=== PATIENT | male | born 1975 | race Caucasian/White ===

== ENCOUNTER 2021-09-20 14:08 | Inpatient (IN) | payer OTHER ==
[~2021-09-20] VITALS: Ht 182.9 cm; Wt 77.3 kg
[2021-09-20] MEDS ORDERED: SODIUM CHLORIDE 0.9% 1,000 ML IV ONE (15:00)
[2021-09-20] MEDS ORDERED: LEVETIRACETAM 1000MG PREMIX 100 ML IV ONE (15:00)
[2021-09-20 17:22] LABS: HEMATOCRIT. 39.3 % (42.0-52.0); HEMOGLOBIN. 14.3 g/dL (14.0-18.0); MEAN CORPUSCULAR HEMOGLOBIN 33.7 pg (28.0-32.0); MEAN CORPUSCULAR VOLUME 92.8 fL (80.0-94.0); MEAN PLATELET VOLUME 8.6 fl (7.4-10.4); PLATELET 95 x1000/uL (130-400); RED BLOOD CELL COUNT 4.23 mill/uL (4.7-6.1); RED CELL DISTRIBUTION WIDTH 13.8 % (11.6-14.6)
[2021-09-20] MEDS ORDERED: DIAZEPAM 5 MG/ML 2ML CPJ IV ONE (17:30)
[2021-09-20 18:09] LABS: CHLORIDE 80 mEq/L (98-107)
[2021-09-20 18:18] LABS: ETHANOL BLOOD < 10 mg/dL; VALPROIC ACID <3.0 ug/mL ug/mL (50-100)
[2021-09-20 18:29] LABS: CREATINE KINASE 1817 IU/L (39-308)
[2021-09-20 18:40] LABS: CARBAMAZEPINE < 0.5 ug/mL (4-12); PHENOBARBITAL < 2.1 ug/mL (15.0-40.0)
[2021-09-20 20:02] LABS: CLARITY URINE CLEAR (CLEAR); COLOR URINE ORANGE (YELLOW); KETONES URINE 1+ (NEGATIVE); LEUKOCYTE ESTERASE URINE NEGATIVE (NEGATIVE); NITRITE URINE NEGATIVE (NEGATIVE); OCCULT BLOOD URINE 1+ (NEGATIVE); PH URINE 5.5 (4.5-8.0); PROTEIN URINE 1+ (NEGATIVE); SPECIFIC GRAVITY URINE 1.017 (1.005-1.030)
[2021-09-20 20:18] LABS: *AMPHETAMINES SCREEN URINE NEGATIVE (NEGATIVE); *BARBITURATES SCREEN URINE NEGATIVE (NEGATIVE); *BENZODIAZEPINES SCREEN URINE NEGATIVE (NEGATIVE); *COCAINE SCREEN URINE NEGATIVE (NEGATIVE); CANNABINOID URINE SCREEN NEGATIVE (NEGATIVE); METHADONE URINE SCREEN NEGATIVE (NEGATIVE); OPIATES URINE SCREEN NEGATIVE (NEGATIVE); PHENCYCLIDINE URINE SCREEN NEGATIVE (NEGATIVE)
[2021-09-20] MEDS ORDERED: ASPIRIN 325MG TABLET PO ONE (20:30)
[2021-09-20 20:54] LABS: PLATELET ESTIMATE DECREASED
[2021-09-20] MEDS ORDERED: NITROGLYCERIN 0.4MG TABLET SL SL PRN (21:00)
[2021-09-20] MEDS ORDERED: MAGNESIUM/ALUMINUM HYDROXIDE/SIMETHICONE 30ML UDC PO PRN (21:00)
[2021-09-20] MEDS ORDERED: KETOROLAC 15MG/ML VIAL IV PRN (21:00)
[2021-09-20] MEDS ORDERED: GUAIFENESIN 200MG/10ML SUGAR FREE UDC PO PRN (21:00)
[2021-09-20] MEDS ORDERED: ACETAMINOPHEN 325MG TABLET PO PRN ×2 (21:00)
[2021-09-20] MEDS ORDERED: IPRATROPIUM/ALBUTEROL 0.5-3(2.5)MG/3ML NEB NEB PRN (21:00)
[2021-09-20] MEDS ORDERED: CLONIDINE 0.1MG TABLET PO PRN (21:00)
[2021-09-20] MEDS ORDERED: DOCUSATE SODIUM 100MG CAPSULE PO PRN (21:00)
[2021-09-20] MEDS ORDERED: ONDANSETRON HCL 4MG/2ML INJ IV PRN (21:00)
[2021-09-20 21:13] LABS: CHLORIDE 86 mEq/L (98-107)
[2021-09-20] MEDS: FAMOTIDINE 20MG TABLET PO SCH (22:10)
[2021-09-20] MEDS: CHLORDIAZEPOXIDE 10MG CAPSULE PO SCH (22:10)
[2021-09-20] MEDS: SODIUM CHLORIDE 0.45% 1,000 ML IV SCH (23:21)
[2021-09-20] MEDS: DILTIAZEM HCL 60MG TABLET PO SCH (23:22)
[2021-09-20 23:49] LABS: T4 FREE 0.99 ng/dL (0.76-1.46)
[2021-09-20 23:59] LABS: CREATINE KINASE MB FRACTION 4.4 ng/mL (0.5-3.6)
[2021-09-21] VITALS (8 sets, daily range): BP systolic 105–133; BP diastolic 69–79
[2021-09-21 00:16] LABS: FOLIC ACID (FOLATE) SERUM 11.1 ng/mL (>5.38)
[2021-09-21] MEDS: DILTIAZEM HCL 60MG TABLET PO SCH ×4 (06:27→23:33)
[2021-09-21] MEDS: CHLORDIAZEPOXIDE 10MG CAPSULE PO SCH ×3 (06:27→21:54)
[2021-09-21] MEDS: SODIUM CHLORIDE 0.45% 1,000 ML IV SCH (06:27)
[2021-09-21 06:34] LABS: HEMATOCRIT. 38.6 % (42.0-52.0); HEMOGLOBIN. 13.8 g/dL (14.0-18.0); MEAN CORPUSCULAR HEMOGLOBIN 33.3 pg (28.0-32.0); MEAN CORPUSCULAR VOLUME 93.4 fL (80.0-94.0); MEAN PLATELET VOLUME 8.7 fl (7.4-10.4); PLATELET 92 x1000/uL (130-400); RED BLOOD CELL COUNT 4.13 mill/uL (4.7-6.1); RED CELL DISTRIBUTION WIDTH 13.5 % (11.6-14.6)
[2021-09-21 06:41] LABS: CHLORIDE 84 mEq/L (98-107)
[2021-09-21 06:51] LABS: PHOSPHORUS 2.5 mg/dL (2.5-4.9)
[2021-09-21 07:02] LABS: CREATINE KINASE MB FRACTION 3.5 ng/mL (0.5-3.6)
[2021-09-21] MEDS ORDERED: POTASSIUM CHLORIDE 20MEQ/PACKET PO SCH (07:15)
[2021-09-21] MEDS ORDERED: SODIUM CHLORIDE 0.9% 1,000 ML IV SCH (07:15)
[2021-09-21] MEDS: SODIUM CHLORIDE 0.9% 1,000 ML IV SCH ×2 (07:26→20:35)
[2021-09-21] MEDS: ASPIRIN 325MG EC TABLET PO SCH (09:26)
[2021-09-21] MEDS: FAMOTIDINE 20MG TABLET PO SCH ×2 (09:26→21:00)
[2021-09-21 12:28] LABS: PLATELET ESTIMATE DECREASED
[2021-09-21] MEDS: MULTIVITAMINS,THER W-MINERALS TABLET PO SCH (14:34)
[2021-09-21] MEDS: THIAMINE HCL 100MG TABLET PO SCH (14:35)
[2021-09-21] MEDS: FOLIC ACID 1MG TABLET PO SCH (14:35)
[2021-09-22] VITALS: BP 115/78
[2021-09-22 04:00] VITALS: BP 101/62
[2021-09-22] MEDS: DILTIAZEM HCL 60MG TABLET PO SCH ×3 (05:38→17:00)
[2021-09-22] MEDS: CHLORDIAZEPOXIDE 10MG CAPSULE PO SCH ×2 (05:50→14:14)
[2021-09-22 06:29] LABS: HEMATOCRIT. 34.4 % (42.0-52.0); HEMOGLOBIN. 12.2 g/dL (14.0-18.0); MEAN CORPUSCULAR HEMOGLOBIN 33.4 pg (28.0-32.0); MEAN CORPUSCULAR VOLUME 94.5 fL (80.0-94.0); MEAN PLATELET VOLUME 8.9 fl (7.4-10.4); PLATELET 87 x1000/uL (130-400); RED BLOOD CELL COUNT 3.64 mill/uL (4.7-6.1); RED CELL DISTRIBUTION WIDTH 13.4 % (11.6-14.6)
[2021-09-22 06:44] LABS: CHLORIDE 96 mEq/L (98-107)
[2021-09-22 06:56] LABS: PHOSPHORUS 3.2 mg/dL (2.5-4.9)
[2021-09-22 08:00] VITALS: BP 106/67
[2021-09-22] MEDS: FAMOTIDINE 20MG TABLET PO SCH ×2 (08:44→21:14)
[2021-09-22] MEDS: MULTIVITAMINS,THER W-MINERALS TABLET PO SCH (08:44)
[2021-09-22] MEDS: ASPIRIN 325MG EC TABLET PO SCH (08:44)
[2021-09-22] MEDS: FOLIC ACID 1MG TABLET PO SCH (08:44)
[2021-09-22] MEDS: THIAMINE HCL 100MG TABLET PO SCH (08:44)
[2021-09-22] MEDS: SODIUM CHLORIDE 0.9% 1,000 ML IV SCH ×2 (08:45→21:15)
[2021-09-22] MEDS ORDERED: POTASSIUM CHLORIDE 20MEQ/PACKET PO ONE (09:30)
[2021-09-22] MEDS ORDERED: POTASSIUM CHLORIDE 20MEQ/PACKET PO NR (10:00)
[2021-09-22 10:32] LABS: CREATINE KINASE MB FRACTION 1.3 ng/mL (0.5-3.6)
[2021-09-22 12:00] VITALS: BP 107/66
[2021-09-22 14:47] LABS: NUCLEATED RED BLOOD CELLS 1 /100 WBC
[2021-09-22 14:48] LABS: PLATELET ESTIMATE DECREASED
[2021-09-22 16:00] VITALS: BP 109/78
[2021-09-22 20:00] VITALS: BP 119/88
[2021-09-22] MEDS: CHLORDIAZEPOXIDE 25MG CAPSULE PO SCH (21:14)
[2021-09-23] VITALS: BP_SYST 102; BP_SYST 112; BP_DIAS 76
[2021-09-23 04:00] VITALS: BP 128/86
[2021-09-23] MEDS: DILTIAZEM HCL 60MG TABLET PO SCH ×4 (05:07→17:36)
[2021-09-23] MEDS: CHLORDIAZEPOXIDE 25MG CAPSULE PO SCH ×3 (05:07→21:29)
[2021-09-23 06:31] LABS: CHLORIDE 100 mEq/L (98-107)
[2021-09-23 06:38] LABS: PHOSPHORUS 3.1 mg/dL (2.5-4.9)
[2021-09-23 08:00] VITALS: BP 119/78
[2021-09-23 08:17] LABS: HEMATOCRIT. 34.8 % (42.0-52.0); HEMOGLOBIN. 12.2 g/dL (14.0-18.0); MEAN CORPUSCULAR HEMOGLOBIN 33.6 pg (28.0-32.0); MEAN CORPUSCULAR VOLUME 95.7 fL (80.0-94.0); MEAN PLATELET VOLUME 8.6 fl (7.4-10.4); PLATELET 108 x1000/uL (130-400); RED BLOOD CELL COUNT 3.63 mill/uL (4.7-6.1); RED CELL DISTRIBUTION WIDTH 13.5 % (11.6-14.6)
[2021-09-23] MEDS: FOLIC ACID 1MG TABLET PO SCH (09:00)
[2021-09-23] MEDS: ASPIRIN 325MG EC TABLET PO SCH (09:48)
[2021-09-23] MEDS: MULTIVITAMINS,THER W-MINERALS TABLET PO SCH (09:48)
[2021-09-23] MEDS: FAMOTIDINE 20MG TABLET PO SCH ×2 (09:48→21:30)
[2021-09-23] MEDS: THIAMINE HCL 100MG TABLET PO SCH (09:50)
[2021-09-23] MEDS ORDERED: POTASSIUM CHLORIDE 20MEQ/PACKET PO SCH (10:00)
[2021-09-23 12:00] VITALS: BP 144/86
[2021-09-23 12:17] LABS: HEMATOCRIT. 35.6 % (42.0-52.0); HEMOGLOBIN. 12.7 g/dL (14.0-18.0); MEAN CORPUSCULAR HEMOGLOBIN 33.4 pg (28.0-32.0); MEAN CORPUSCULAR VOLUME 93.7 fL (80.0-94.0); MEAN PLATELET VOLUME 8.3 fl (7.4-10.4); PLATELET 114 x1000/uL (130-400); RED CELL DISTRIBUTION WIDTH 13.4 % (11.6-14.6)
[2021-09-23 12:25] LABS: CHLORIDE 98 mEq/L (98-107)
[2021-09-23] MEDS: SODIUM CHLORIDE 0.9% 1,000 ML IV SCH (12:35)
[2021-09-23 13:26] LABS: ATYPICAL LYMPHOCYTES 1; PLATELET ESTIMATE SLIGHTLY DECREASED
[2021-09-23 17:29] LABS: PLATELET ESTIMATE DECREASED
[2021-09-23 20:00] VITALS: BP 145/97
[2021-09-24] MEDS: DILTIAZEM HCL 60MG TABLET PO SCH ×3 (01:34→18:15)
[2021-09-24] MEDS: SODIUM CHLORIDE 0.9% 1,000 ML IV SCH ×2 (01:55→15:15)
[2021-09-24 04:00] VITALS: BP_SYST 120; BP_SYST 140; BP_DIAS 66; BP_DIAS 75
[2021-09-24 08:00] VITALS: BP 113/72
[2021-09-24] MEDS ORDERED: POTASSIUM CHLORIDE 20MEQ/PACKET PO SCH (09:00)
[2021-09-24] MEDS: THIAMINE HCL 100MG TABLET PO SCH (09:38)
[2021-09-24] MEDS: ASPIRIN 325MG EC TABLET PO SCH (09:38)
[2021-09-24] MEDS: FAMOTIDINE 20MG TABLET PO SCH ×2 (09:38→21:49)
[2021-09-24] MEDS: FOLIC ACID 1MG TABLET PO SCH (09:38)
[2021-09-24] MEDS: MULTIVITAMINS,THER W-MINERALS TABLET PO SCH (09:38)
[2021-09-24 12:00] VITALS: BP 123/80
[2021-09-24] MEDS: CHLORDIAZEPOXIDE 10MG CAPSULE PO SCH ×2 (14:00→21:49)
[2021-09-24 16:00] VITALS: BP 122/77
[2021-09-24 20:00] VITALS: BP 107/73
[2021-09-25] VITALS: BP 128/84
[2021-09-25] MEDS: DILTIAZEM HCL 60MG TABLET PO SCH ×3 (00:34→11:50)
[2021-09-25 04:00] VITALS: BP 119/71
[2021-09-25] MEDS: SODIUM CHLORIDE 0.9% 1,000 ML IV SCH ×2 (04:35→10:47)
[2021-09-25] MEDS: CHLORDIAZEPOXIDE 10MG CAPSULE PO SCH (06:03)
[2021-09-25 07:05] LABS: HEMATOCRIT. 35.6 % (42.0-52.0); HEMOGLOBIN. 12.5 g/dL (14.0-18.0); MEAN CORPUSCULAR HEMOGLOBIN 33.4 pg (28.0-32.0); MEAN CORPUSCULAR VOLUME 94.7 fL (80.0-94.0); MEAN PLATELET VOLUME 7.9 fl (7.4-10.4); PLATELET 156 x1000/uL (130-400); RED BLOOD CELL COUNT 3.76 mill/uL (4.7-6.1); RED CELL DISTRIBUTION WIDTH 13.3 % (11.6-14.6)
[2021-09-25 07:14] LABS: CHLORIDE 100 mEq/L (98-107)
[2021-09-25 07:23] LABS: PHOSPHORUS 3.7 mg/dL (2.5-4.9)
[2021-09-25 07:48] VITALS: BP 119/80
[2021-09-25] MEDS: FAMOTIDINE 20MG TABLET PO SCH (08:22)
[2021-09-25] MEDS: FOLIC ACID 1MG TABLET PO SCH (08:22)
[2021-09-25] MEDS: MULTIVITAMINS,THER W-MINERALS TABLET PO SCH (08:22)
[2021-09-25] MEDS: ASPIRIN 325MG EC TABLET PO SCH (08:22)
[2021-09-25] MEDS: THIAMINE HCL 100MG TABLET PO SCH (08:22)
[2021-09-25] MEDS ORDERED: DILT240C91 MT (08:45)
[2021-09-25] MEDS ORDERED: FOLI-43 PO (08:45)
[2021-09-25] MEDS ORDERED: THIA100T72 PO (08:45)
[2021-09-25] MEDS ORDERED: POTASSIUM CHLORIDE 20MEQ/PACKET PO SCH (09:00)
[2021-09-25 09:56] VITALS: BP 119/80
[2021-09-25 11:24] VITALS: BP 112/77
[2021-09-25 14:08] LABS: PLATELET ESTIMATE NORMAL
== END 2021-09-25 16:15 | disposition home or self-care (01) | DRG 190 ==
LOC: ER 14:19 → 8WST 18:46 → EDBEDREQ 18:48 → CANRESERV 20:04 → ENRESERV 20:04 → EDBEDREQTM 21:30 → EDBEDREQSVC 21:30 → ENRESERV 09-21 01:18
PROVIDERS: ADMIT Internal Medicine; ATTEND Internal Medicine
DX: I21.4 Non-ST elevation (NSTEMI) myocardial infarction (principal); G92.8 Other toxic encephalopathy; M62.82 Rhabdomyolysis; E87.1 Hypo-osmolality and hyponatremia; E44.1 Mild protein-calorie malnutrition; E83.51 Hypocalcemia; E87.6 Hypokalemia; I10 Essential (primary) hypertension; E11.9 Type 2 diabetes mellitus without complications; R56.9 Unspecified convulsions; D69.59 Other secondary thrombocytopenia; F10.20 Alcohol dependence, uncomplicated; F17.210 Nicotine dependence, cigarettes, uncomplicated; F10.239 Alcohol dependence with withdrawal, unspecified; Z68.23 Body mass index [BMI] 23.0-23.9, adult; Z53.20 Procedure and treatment not carried out because of patient's decision for unspecified reasons; Z56.0 Unemployment, unspecified
CPT/HCPCS: 36415; 71045; 80048; 80053; 80061; 80156; 80165; 80184; 80185; 80305; 80320; 81003; 82550; 82553; 82607; 82746; 82962; 83036; 83540; 83550; 83735; 83930; 84100; 84439; 84443; 84484; 85025; 93005; 93306; 93970; 97162; 97166; 97530; 99291; J1953; J7030; G0480